=== PATIENT | female | born 1965 | race Caucasian/White ===

== ENCOUNTER 2019-03-12 12:22 | Emergency (ER) | payer MEDICAID ==
[~2019-03-12] VITALS: Ht 154.9 cm; Wt 56.3 kg
[2019-03-12 13:13] LABS: BASOPHILS # (AUTO) 0.1 X10'3 (0-0.2); BASOPHILS % (AUTO) 0.6 % (0-1); EOSINOPHILS # (AUTO) 0.2 X10'3 (0-0.9); EOSINOPHILS % (AUTO) 2.7 % (0-6); HEMATOCRIT 37.6 % (35.0-45.0); LYMPHOCYTES % (AUTO) 25.8 % (21-51); MEAN CORPUSCULAR HEMOGLOBIN 31.9 PG (27.0-31.0); MEAN CORPUSCULAR HGB CONC 34.6 g/dL (33.0-36.5); MEAN CORPUSCULAR VOLUME 92.3 FL (78-98); MEAN PLATELET VOLUME 8.4 FL (7.4-10.4); MONOCYTES # (AUTO) 0.5 X10'3 (0-0.9); MONOCYTES % (AUTO) 6.7 % (2-12); NEUTROPHILS % (AUTO) 64.2 % (42-75); PLATELET COUNT 373 X10'3 (140-440); RED BLOOD COUNT 4.08 X10'6 (4.20-5.60); RED CELL DISTRIBUTION WIDTH 14.9 % (11.5-14.5); WHITE BLOOD COUNT 7.8 X10'3 (4.5-11.0)
[2019-03-12 13:23] LABS: PARTIAL THROMBOPLASTIN TIME 26 SECONDS (22-32)
[2019-03-12 14:09] LABS: ALANINE AMINOTRANSFERASE 24 U/L (12-78); ALBUMIN 3.4 G/DL (3.4-5.0); ALKALINE PHOSPHATASE 64 IU/L (46-116); ANION GAP 1 (8-16); ASPARTATE AMINO TRANSFERASE 14 U/L (10-37); BILIRUBIN,TOTAL 0.1 MG/DL (0.1-1.0); BLOOD UREA NITROGEN 9 MG/DL (7-18); BUN/CREATININE RATIO 15.3 (6.6-38.0); CALCIUM 9.8 MG/DL (8.5-10.1); CHLORIDE 106 MMOL/L (99-107); CREATININE 0.59 MG/DL (0.40-0.90); GLUCOSE 101 MG/DL (70-104); POTASSIUM 3.7 MMOL/L (3.5-5.1); SODIUM 140 MMOL/L (135-145); TOTAL CARBON DIOXIDE 32.6 MMOL/L (24-32); TOTAL PROTEIN 6.9 G/DL (6.4-8.2); eGFR > 90 ML/MIN
[2019-03-12] MEDS ORDERED: IBUP-1985 PO (14:17)
[2019-03-12] MEDS ORDERED: ketorolac trometh. 30mg/ml inj. IV ONE (14:20)
[2019-03-12 14:35] VITALS: BP 135/77
[2019-03-12] MEDS ORDERED: ACET-1008 PO (14:40)
[2019-03-12] MEDS ORDERED: CYCL-1 PO (14:44)
== END 2019-03-12 14:50 | disposition home or self-care (01) ==
LOC: ER 12:23
DX: R07.89 Other chest pain (principal); K04.7 Periapical abscess without sinus; J45.909 Unspecified asthma, uncomplicated; Z98.51 Tubal ligation status; Z98.890 Other specified postprocedural states; Z88.0 Allergy status to penicillin; Z88.1 Allergy status to other antibiotic agents; Z79.899 Other long term (current) drug therapy
CPT/HCPCS: 36415; 71045; 80053; 84484; 85025; 85610; 85730; 93005; 96374; 99284; J1885

== ENCOUNTER 2025-09-04 14:52 | Outpatient (CLI) | payer MEDICAID ==
[~2025-09-04 14:52] MED LIST: ACET-1008 PO; CYCL-1 PO; IBUP600T52 PO
--- NOTE | 2025-09-04 16:56 | RADIOLOGY REPORT ---
EXAM: MR MRI HEAD INDICATION: UNSP INTRACRANIAL INJURY W/O LOSS OF CONSCIOUSNESS, INIT TECHNIQUE: Multiplanar, multisequence imaging of the brain without contrast. COMPARISON: None FINDINGS: [PARENCHYMA]: No acute infarct or hemorrhage. No mass effect or herniation. No abnormal susceptibility weighted artifact. There are minimal periventricular and centrum semiovale T2/FLAIR hyperintensities, which are nonspecific but most likely represent chronic microvascular ischemic change. [VENTRICLES]: No hydrocephalus. [EXTRA-AXIAL SPACES]: No extra-axial fluid collections. [FLOW VOIDS]: The flow voids are intact. [EXTRA-CRANIAL STRUCTURES]: The bony structures are intact. Visualized portions of the paranasal sinuses and mastoid air cells are essentially clear. IMPRESSION: 1. No MR evidence of an acute intracranial abnormality.
== END 2025-09-04 23:59 | disposition home or self-care (01) ==
LOC: MRI02 14:52
DX: S06.9X0A Unspecified intracranial injury without loss of consciousness, initial encounter (principal); R41.3 Other amnesia; X58.XXXA Exposure to other specified factors, initial encounter; Y93.89 Activity, other specified; Y92.89 Other specified places as the place of occurrence of the external cause; Y99.8 Other external cause status
CPT/HCPCS: 70551

== ENCOUNTER 2025-10-14 10:47 | Outpatient (CLI) | payer MEDICAID ==
--- NOTE | 2025-10-14 12:59 | PROCEDURE NOTE ---
Procedure Note Providers to CC ~ Description: [place] EEG Note # Demographics Type of EEG Read: - Routine EEG - video Patient Location: Outpatient First Name: Pat Last Name: Gustavo Date of : 1965 Age: 60 Gender: Female Facility: [facility] Time of Initial Page (): 10/14/2025 12:00 First Contact with Site ( Time): 10/14/2025 12:01 # EEG Interpretation Start Time of EEG Read (): 10/14/2025 12:21 Stop Time of EEG Read (): 10/14/2025 12:46 Duration: 0h 25m Technical Details: - The EEG electrodes were placed using the standard International 10-20 system of electrode placement. Video and an accessory EKG lead were used during the course of this study. - This study was recorded using the [employer] EEG software Indication: - seizure # Description Photic Stimulation: NOT Performed Hyperventilation: NOT performed Phases Captured: - awake Symmetry: symmetric Posterior Dominant Rhythm: - present, attenuates on eye opening 9-10 Hz Predominant Frequencies: - non-posterior dominant alpha (8-12 Hz) - abundant (50-89%) Superimposed Frequencies: - theta (4-7 Hz) - occasional (1-9%) Amplitude: normal Reactivity: yes Variability: yes Continuity: continuous EKG: NSR # Abnormalities Epileptiform Abnormalities: - NOT present There were some sharp transients in drowsiness that were suspicious but not definitively epileptiform; more consistent with normal variants of wicket spikes and RMTD Focal Slowing: no Seizure: - NOT present # Impression Impression: normal # Clinical Correlation Clinical Correlation: A normal EEG does not exclude nor support the diagnosis of epilepsy. Additional Comments: Some rare sharp transients were present which were suspicious but not definitively epileptiform. Clinical correlation advised. # Logistics Telemedicine: remote EEG review: EEG reviewed remotely # Demographics First Name: Pat Last Name: Gustavo Facility: [facility] KAYLA FRANCES MD Oct 14, 2025 12:59
== END 2025-10-14 23:59 | disposition home or self-care (01) ==
LOC: RAD 10:47
DX: S06.9X0A Unspecified intracranial injury without loss of consciousness, initial encounter (principal); R41.3 Other amnesia; X58.XXXA Exposure to other specified factors, initial encounter; Y93.89 Activity, other specified; Y92.89 Other specified places as the place of occurrence of the external cause; Y99.8 Other external cause status
CPT/HCPCS: 95816